=== PATIENT | female | born 1950 | race African-American/Black ===

== ENCOUNTER 2018-03-25 05:19 | Emergency (ER) | payer OTHER ==
--- NOTE | 2018-03-25 05:41 | PDOC ---
Attending Attestation - Resident Resident Name: Julio Smith - ED Attending Attestation I have performed the following: I have examined & evaluated the patient, The case was reviewed & discussed with the resident, I agree w/resident's findings & plan, Exceptions are as noted - HPI HPI: 03/25/18 06:43 67F with diffuse abd px and R flank px - Physicial Exam PE: 03/25/18 06:43 Agree with exam as reported by resident NAD, AOx3 No CVAT Abd soft, +periumbilical tenderness - Medical Decision Making 03/25/18 06:45 Focal abd tenderness f/u labs, imaging dispo per clnical course
[2018-03-25] MEDS ORDERED: SODIUM CHLORIDE 0.9% 1000 ML INFUS.BAG IV ONE (05:43)
[2018-03-25] MEDS ORDERED: FAMOTIDINE 20 MG/50 ML IVPB 20 MG/50 ML MG IVPB ONE ×2 (05:43→06:07)
--- NOTE | 2018-03-25 05:51 | PDOC ---
History of Present Illness - General Stated Complaint: ABD AND BACK PAIN Time Seen by Provider: 03/25/18 05:33 History Source: Patient Exam Limitations: No Limitations - History of Present Illness Initial Comments: 03/25/18 05:46 The patient is a 67F with a PMH of HTN and prediabetes, compliant with meds, who presents to the ER with 4 days of R flank pain and diffuse abdominal pain. The patient states that she initially thought the pain was gas and took maalox without relief. She describes a sharp flank pain and dull/pressure-like abdominal pain, nonradiating, not exacerbated or alleviated by any factors. She denies fever, chills, nausea, vomiting, CP, SOB, dysuria, hematuria, and hematochezia. LBM yesterday morning. She has never had any abdominal surgeries. She denies smoking, drinking, and recreational drugs. Past History - Past Medical History Allergies/Adverse Reactions: Allergies Allergy/AdvReac Type Severity Reaction Status Date / Time Shellfish Allergy Verified 10/25/13 22:07 SHRIMP Allergy Uncoded 10/25/13 22:07 Home Medications: Ambulatory Orders Metformin HCl [Glucophage] 500 mg PO HS 10/26/13 Losartan 50Mg/Hctz 12.5MG [Hyzaar -] 1 tab PO DAILY 03/25/18 Diabetes: Yes ("borderline"- on PO metformin) HTN: Yes Hypercholesterolemia: Yes - Suicide/Smoking/Psychosocial Hx Smoking Status: No Smoking History: Former smoker Number of Cigarettes Smoked Daily: 0 If you are a former smoker, when did you quit?: 18 years ago Hx Alcohol Use: No Drug/Substance Use Hx: No Substance Use Type: None Hx Substance Use Treatment: No Review of Systems - Review of Systems Able to Perform ROS?: Yes Comments:: 03/25/18 05:51 GENERAL/CONSTITUTIONAL: No fever or chills. No weakness. HEAD, EYES, EARS, NOSE AND THROAT: No change in vision. No ear pain or discharge. No sore throat. CARDIOVASCULAR: No chest pain, palpitations, or lightheadedness. RESPIRATORY: No cough, wheezing, shortness of breath, or hemoptysis. GASTROINTESTINAL: Positive for abdominal pain. No nausea, vomiting, diarrhea, or constipation. GENITOURINARY: Positive for flank pain. No dysuria, frequency, hematuria, or change in urination. MUSCULOSKELETAL: No joint or muscle swelling or pain. No neck or back pain. SKIN: No rash or lesions. NEUROLOGIC: No headache, numbness, tingling, focal weakness, loss of consciousness, or change in strength/sensation. ENDOCRINE: No increased thirst. No abnormal weight change. HEMATOLOGIC/LYMPHATIC: No anemia, easy bleeding, or history of blood clots. ALLERGIC/IMMUNOLOGIC: No hives or skin allergy. Is the patient limited Icelandic proficient: No *Physical Exam - Physical Exam Comments: 03/25/18 05:53 GENERAL: Well developed, well nourished. Awake and alert. In mild distress. HEENT: Normocephalic, atraumatic. Hearing grossly normal. Moist mucous membranes. PERRLA, EOMI. No conjunctival pallor. Sclera are non-icteric. NECK: Supple. Full ROM. No JVD. CARDIOVASCULAR: Regular rate and rhythm. No murmurs, rubs, or gallops. PULMONARY: No evidence of respiratory distress. Lungs clear to auscultation bilaterally. No wheezing, rales or rhonchi. ABDOMINAL: Soft. Tender to deep palpation over umbilicus and periumbilical abdomen. Non-distended. No rebound or guarding. GENITOURINARY: R CVA tenderness. MUSCULOSKELETAL: Normal range of motion at all joints. No bony deformities or tenderness. EXTREMITIES: No cyanosis. No clubbing. No edema. No calf tenderness or swelling. SKIN: Warm and dry. Normal capillary refill. No rashes. No jaundice. NEUROLOGICAL: Alert, awake, appropriate. Cranial nerves 2-12 grossly intact. Normal speech. Gait is normal without ataxia. PSYCHIATRIC: Cooperative. Good eye contact. Appropriate mood and affect. ED Treatment Course - LABORATORY CBC & Chemistry Diagram: 03/25/18 06:06 03/25/18 06:06 Medical Decision Making - Medical Decision Making 03/25/18 06:03 The patient is a 67F with a PMH of HTN and prediabetes who presents to the ER with R flank and abdominal pain concerning for AAA, pyelo, cystitis vs other UTI. Due to age, risk factors, and TTP, will order CTAP with IV contrast. Labs and imaging pending. Will give fluids and pepcid for pt comfort. 03/25/18 07:08 Pt signed out to Dr. Mejia for further care. Pending labs and CTAP. *DC/Admit/Observation/Transfer - Referrals Referrals: Amita Chu MD [Primary Care Provider] - - Patient Instructions - Post Discharge Activity
[2018-03-25 05:55] VITALS: BMI 27.3
[2018-03-25 06:17] LABS: BASO % 0.8 % (0-2.0); EOS % 7.7 % (0-4.5); HEMATOCRIT 36.5 % (32.4-45.2); HEMOGLOBIN 12.3 GM/dL (10.7-15.3); LYMPH % 33.7 % (8-40); MCHC 33.6 g/dl (32.0-36.0); MEAN CELL VOLUME 71.5 fl (80-96); MEAN PLT VOLUME 8.2 fl (7.5-11.1); MONO % 6.3 % (3.8-10.2); NEUT % 51.5 % (42.8-82.8); PLATELET COUNT 269 K/MM3 (134-434); RBC 5.11 M/mm3 (3.60-5.2); RDW 15.1 % (11.6-15.6); WHITE BLOOD COUNT 8.2 K/mm3 (4.0-10.0)
[2018-03-25 06:18] LABS: URINE APPEARANCE CLEAR; URINE BILIRUBIN NEGATIVE (<2.0 mg/dL); URINE COLOR YELLOW; URINE GLUCOSE (UA) NEGATIVE (NEGATIVE); URINE KETONE NEGATIVE (NEGATIVE); URINE LEUK ESTERASE TRACE (NEGATIVE); URINE NITRITE NEGATIVE (NEGATIVE); URINE PROTEIN NEGATIVE (NEGATIVE)
[2018-03-25 06:45] LABS: EPI CELLS RARE /HPF (FEW); URINE HYALINE CAST 1 /lpf; URINE MUCUS RARE
[2018-03-25 06:52] LABS: INR 0.99 (0.83-1.09); PROTHROMBIN TIME (PATIENT) 11.7 SEC (9.7-13.0)
[2018-03-25 07:45] LABS: ALBUMIN 3.1 g/dl (3.4-5.0); ALK PHOS 160 U/L (45-117); ANION GAP 7 MMOL/L (8-16); BILIRUBIN,TOTAL 0.4 mg/dL (0.2-1); BLOOD UREA NITROGEN 15 mg/dL (7-18); CHLORIDE 108 mmol/L (98-107); CO2 25 mmol/L (21-32); CREATININE 0.9 mg/dL (0.55-1.3); GLUCOSE,RANDOM 179 mg/dL (74-106); LIPASE 229 U/L (73-393); SGOT/AST 20 U/L (15-37); SGPT/ALT 25 U/L (13-61); SODIUM 139 mmol/L (136-145); TOT PROT 7.1 g/dl (6.4-8.2)
[2018-03-25 08:32] VITALS: BP 134/87; PULSE 86; TEMP 98.4
[2018-03-25] MEDS ORDERED: IBUPROFEN 600 MG TABLET (FP) PO ONE ×2 (09:51→09:52)
--- NOTE | 2018-03-25 09:54 | PDOC ---
*Physical Exam - Vital Signs Last Vital Signs Temp Pulse Resp BP Pulse Ox 98.4 F 86 16 134/87 99 03/25/18 08:31 03/25/18 08:31 03/25/18 08:31 03/25/18 08:31 03/25/18 08:31 ED Treatment Course - LABORATORY CBC & Chemistry Diagram: 03/25/18 06:06 03/25/18 07:00 - ADDITIONAL ORDERS Additional order review: Laboratory Results 03/25/18 03/25/18 03/25/18 07:00 07:00 06:06 PT with INR INR Sodium 139 Potassium 4.0 Chloride 108 H Carbon Dioxide 25 Anion Gap 7 L BUN 15 Creatinine 0.9 Creat Clearance w eGFR > 60 Random Glucose 179 H Calcium 8.0 L Total Bilirubin 0.4 AST 20 ALT 25 Alkaline Phosphatase 160 H Total Protein 7.1 Albumin 3.1 L Lipase 229 Urine Color Yellow Urine Appearance Clear Urine pH 6.0 Ur Specific [place] 1.019 Urine Protein Negative Urine Glucose (UA) Negative Urine Ketones Negative Urine Blood Negative Urine Nitrite Negative Urine Bilirubin Negative Urine Urobilinogen 2.0 H Ur Leukocyte Esterase Trace Urine WBC (Auto) 1 Urine RBC (Auto) <1 Ur Epithelial Cells Rare Hyaline Casts 1 Urine Mucus Rare Blood Type B POSITIVE Antibody Screen Negative 03/25/18 03/25/18 03/25/18 06:06 06:06 06:06 PT with INR 11.70 INR 0.99 Sodium Cancelled Potassium Cancelled Chloride Cancelled Carbon Dioxide Cancelled Anion Gap Cancelled BUN Cancelled Creatinine Cancelled Creat Clearance w eGFR Cancelled Random Glucose Cancelled Calcium Cancelled Total Bilirubin Cancelled AST Cancelled ALT Cancelled Alkaline Phosphatase Cancelled Total Protein Cancelled Albumin Cancelled Lipase Cancelled Urine Color Urine Appearance Urine pH Ur Specific [place] Urine Protein Urine Glucose (UA) Urine Ketones Urine Blood Urine Nitrite Urine Bilirubin Urine Urobilinogen Ur Leukocyte Esterase Urine WBC (Auto) Urine RBC (Auto) Ur Epithelial Cells Hyaline Casts Urine Mucus Blood Type Cancelled Antibody Screen Cancelled 03/25/18 06:06 RBC 5.11 MCV 71.5 L MCHC 33.6 RDW 15.1 MPV 8.2 Neutrophils % 51.5 D Lymphocytes % 33.7 D Monocytes % 6.3 Eosinophils % 7.7 H D Basophils % 0.8 D - Medications Given in the ED: ED Medications Discontinued Medications Generic Name Dose Route Start Last Admin Trade Name Hortencia PRN Reason Stop Dose Admin Famotidine/Sodium Chloride 20 mg in 50 mls @ 100 mls/hr 03/25/18 05:43 06:13 Pepcid 20 Mg Premixed Ivpb - IVPB 03/25/18 06:12 100 mls/hr ONCE ONE Administration Sodium Chloride 1,000 ml 03/25/18 05:43 03/25/18 06:13 Normal Saline - IV 03/25/18 05:44 1,000 ml ONCE ONE Administration Medical Decision Making - Medical Decision Making 03/25/18 09:55 1. No evidence of urinary tract calculi or obstructive uropathy. 2. Cholelithiasis. 3. Right inguinal hernia. 4. Fibroid uterus. 5. No acute pathology within the pelvis. *DC/Admit/Observation/Transfer Diagnosis at time of Disposition: Flank pain, acute - Discharge Dispostion Disposition: HOME Condition at time of disposition: Improved Decision to Admit order: No - Referrals Referrals: Amita Chu MD [Primary Care Provider] - Sammy Simental MD [Staff Physician] - - Patient Instructions Printed Discharge Instructions: DI for Flank Pain Additional Instructions: Come back to the emergency department for any new, worsening or concerning symptom. Follow up with your primary care provider and your surgery referral. - Post Discharge Activity
--- NOTE | 2018-03-25 10:27 | EKG ---
Test Reason : Blood Pressure : / mmHG Vent. Rate : 083 BPM Atrial Rate : 083 BPM P-R Int : 166 ms QRS Dur : 080 ms QT Int : 386 ms P-R-T Axes : 077 057 049 degrees QTc Int : 453 ms NORMAL SINUS RHYTHM NORMAL ECG WHEN COMPARED WITH ECG OF 25-OCT-2013 22:26, NO SIGNIFICANT CHANGE WAS FOUND Confirmed by SARAH RODRIGUEZ MD ([id number]) on 03/25/2018 10:27:12 AM Referred By: Confirmed By:SARAH RODRIGUEZ MD
== END 2018-03-25 10:05 | disposition home or self-care (01) ==
LOC: JER 05:19
PROC: 3E033GC Introduction of Other Therapeutic Substance into Peripheral Vein, Percutaneous Approach (ICD-10-PCS; principal; 2018-03-25)
DX: M54.9 Dorsalgia, unspecified (principal); R10.31 Right lower quadrant pain; I10 Essential (primary) hypertension; E11.9 Type 2 diabetes mellitus without complications; Z79.84 Long term (current) use of oral hypoglycemic drugs
CPT/HCPCS: 36415; 74177-TC; 80053; 81003; 81015; 83690; 85025; 85610; 86850; 86900; 86901; 87086; 93005; 93010; 99283-25; J7030

== ENCOUNTER 2018-05-07 05:04 | Day surgery (SDC) | payer OTHER ==
[2018-05-05 16:50] VITALS: BMI 29.4
[~2018-05-07 05:04] MED LIST: BUPIVACAINE HCL/PF 0.5% (5MG/ML) 10 ML VIAL IJ ONE
[2018-05-07] MEDS ORDERED: BUPIVACAINE HCL/PF 0.5% (5MG/ML) 10 ML VIAL ONE (08:17)
[2018-05-07] MEDS ORDERED: DESFLURANE GAS 240 ML BOTTLE IH ONE (08:20)
[2018-05-07] MEDS ORDERED: MIDAZOLAM HCL 2 MG/2 ML SINGLE DOSE VIAL ONE (08:22)
[2018-05-07] MEDS ORDERED: PROPOFOL 20 ML ONE (08:23)
[2018-05-07] MEDS ORDERED: LIDOCAINE HCL/PF 2% SDV 5ML VIAL ONE (08:24)
[2018-05-07] MEDS ORDERED: PROMETHAZINE HCL 25 MG/1 ML VIAL IVPB PRN (08:31)
[2018-05-07] MEDS ORDERED: oxyCODONE HCL 5 MG TABLET PO PRN (08:31)
[2018-05-07] MEDS ORDERED: ONDANSETRON 4 MG/2 ML VIAL IVPUSH PRN (08:31)
[2018-05-07] MEDS ORDERED: LACTATED RINGERS SOLUTION 1,000 ML IV SCH (08:45)
--- NOTE | 2018-05-07 09:25 | HP ---
History & Physical Update - History History: No Change - Physical Physical: No Change - Assessment Assessment: No Change - Plan Plan: No Change (Patient with upper abdominal pain , found to have multiple gallstones in gallbladder. She is scheduled to have laparoscopic cholecystectoomy , possible open. The procedure has been explained with risks , benefits and complications, including, bleeding, postoperative infection , bile leak, ductal injury . Consent obtained.)
[2018-05-07] MEDS ORDERED: ceFAZolin SODIUM 1 GM VIAL IVPB ONE (09:55)
[2018-05-07] MEDS ORDERED: ceFAZolin SODIUM 1 GM VIAL ONE (09:57)
[2018-05-07] MEDS ORDERED: DEXAMETHASONE SOD PHOSPHATE 4 MG/1 ML VIAL ONE (09:59)
[2018-05-07] MEDS ORDERED: ePHEDrine SULFATE 50 MG/1 ML AMPULE ONE (10:14)
[2018-05-07] MEDS ORDERED: NEOSTIGMINE METHYLSULFATE 0.5 MG/ML - 10 ML MDV ONE (10:30)
[2018-05-07] MEDS ORDERED: GLYCOPYRROLATE 0.2 MG/1 ML VIAL ONE (10:30)
[2018-05-07] MEDS ORDERED: BUPIVACAINE HCL/PF 0.5% (5MG/ML) 10 ML VIAL IJ ONE (10:35)
--- NOTE | 2018-05-07 10:40 | OP ---
Operative Note - Note: Operative Date: 05/07/18 Pre-Operative Diagnosis: Cholelithiasis, chronic cholecystitis, upper abdominal pain. Operation: Laparoscopic cholecystectomy. Findings: Distended gallbladder. Post-Operative Diagnosis: Same as Pre-op Surgeon: Shahid Siddiqui Aircraft Structural Design Engineer: Hayde Washington Anesthesiologist/IRB COMPLIANCE COORDINATOR: Paul Ram Anesthesia: General Specimens Removed: Gallbladder Estimated Blood Loss (mls): 5 Operative Report Dictated: Yes
[2018-05-07] MEDS ORDERED: ACETAMINOPHEN 1000 MG/100 ML VIAL (NON FORMULARY) IVPB ONE (11:01)
[2018-05-07] MEDS ORDERED: ACETAMINOPHEN INJECTION 100 ML IVPB ONE (11:10)
--- NOTE | 2018-05-07 12:01 | OP ---
DATE OF OPERATION: 05/07/2018 PREOPERATIVE DIAGNOSIS: Chronic right upper quadrant abdominal pain and calculus of the gallbladder with chronic cholecystitis. POSTOPERATIVE DIAGNOSIS: Chronic right upper quadrant abdominal pain and calculus of the gallbladder with chronic cholecystitis. OPERATIVE PROCEDURE: Laparoscopic cholecystectomy. SURGEON: Love Siddiqui MD RETAIL PARTS PROFESSIONAL: JOELLEN Almonte ANESTHESIA: General anesthesia. ANESTHESIOLOGIST: Paul Ram MD OPERATIVE DESCRIPTION: This 67-year-old woman with chronic right upper quadrant abdominal pain who found to have multiple calculi in the gallbladder on ultrasound. She was brought in for laparoscopic cholecystectomy. Consent was obtained. Risks, benefits, and complications have been having discussed with the patient. The patient was given general anesthesia. She was given a gram of Ancef. The abdomen was painted and draped. Time-out was called. An incision was made in the infraumbilical portion of the umbilicus, which was deepened through the skin and subcutaneous tissue and the linea alba. The peritoneum was incised, and a 10- to 12-mm laparoscopic trocar of the Monty type was introduced through the abdominal cavity. A 5-mm camera was introduced into the abdominal cavity. The abdomen was insufflated with carbon dioxide at 6 L/min with maximum intra-abdominal pressure of 15 mmHg. A 5-mm camera was introduced through the abdominal cavity. Under direct vision, two 5-mm trocars were inserted in the right upper quadrant of the abdomen, 1 along the right anterior axillary line, another along the mid clavicular line. These were noted entering the abdominal cavity under direct vision of the camera. A 3rd 5-mm trocar was inserted in the midline in the subxiphoid area. This was noted in the abdominal cavity to the right of the falciform ligament. The gallbladder was then visualized and grasped at the fundus with the grasper passed through the lateral 5-mm port. The gallbladder was then visualized and grasped at the fundus with the grasper passed through the lateral 5-mm port. The gallbladder was retracted cephalad and laterally thus exposing the infundibulum of the gallbladder. With another grasper through the medial 5-mm port, the infundibulum was grasped, and this was retracted inferiorly and laterally thus exposing the exposing Calot triangle. The Endo scissors in the subxiphoid port. The peritoneal reflection around the cystic duct was incised and the cystic duct isolated circumferentially. This was then divided between clips. The cystic artery was brought into view. It was likewise divided between clips. The peritoneal reflection on either side of the gallbladder was then cauterized and incised about 3 mm along the liver edge. The gallbladder was dissected off the gallbladder bed all the way to the fundus of the gallbladder. The cholecystectomy was, thus, accomplished. Hemostasis was achieved throughout the procedure as the procedure progressed. An EndoCatch was then introduced through the umbilical port the camera being switched to the subxiphoid port. The gallbladder was placed in the EndoCatch and retrieved out of the pelvic cavity. The specimen was sent to Pathology. The gallbladder fossa was completely clean. It was irrigated with 60 mL of normal saline. All fluid return was clear. There was no bleeding. The abdomen was then deflated, and the instruments were withdrawn. The linea alba in the midline at the umbilical port was approximated with interrupted and [id number] 2-0 Vicryl sutures. Then 0.5% Marcaine was injected into the wound. The skin was approximated with buried interrupted 4-0 Biosyn sutures. Dermabond was applied across the skin edges. The patient tolerated the procedure well, was extubated and sent to the recovery room in satisfactory and stable condition. Bella GARCIA/[id number] cc: Dr. Chu
--- NOTE | 2018-05-07 14:33 | SURG ---
Surgery Animal Husbandry Professor Note Animal Husbandry Professor: Hayde Washington PA-C Date of Service: 05/07/18 Diagnosis: Cholelithiasis, chronic cholecystitis, upper abdominal pain. Procedure: Laparoscopic cholecystectomy. I was present for the entirety of the operative procedure. For further detail, please refer to operative report. Visit type - Case Type Case Type: Scheduled - Emergency Emergency Visit: No - New patient This patient is new to me today: Yes Date on this admission: 05/07/18
[2018-05-07 15:26] VITALS: PULSE 89
[2018-05-07 15:56] VITALS: BP 134/77; TEMP 98.1
--- NOTE | 2018-05-10 15:41 | PATH ---
Surgical Pathology Report Patient Name: EMRE DOHERTY [facility]. Rec. #: [id number] /Age/Gender: 1950 (Age: 67) / F Account: [id number] Location: U SURGICAL Taken: 05/07/2018 Received: 05/07/2018 Reported: 05/10/2018 Physicians: Love Siddiqui M.D. Specimen(s) Received GALLBLADDER Clinical History Cholelithiasis, cholecystitis Final Diagnosis GALLBLADDER, LAPAROSCOPIC CHOLECYSTECTOMY: CHRONIC CHOLECYSTITIS, CHOLELITHIASIS, AND CHOLESTEROLOSIS. ONE LYMPH NODE WITH NON-NECROTIZING GRANULOMAS (0/1). SPECIAL STAINS FOR ACID FAST BACILLI (AFB) AND PAS FUNGUS ARE NEGATIVE. SEE COMMENT. Comment: The periductal lymph node shows non-necrotizing granulomatous inflammation. Findings are non-specific with a broad differential diagnosis; which includes infection and sarcoidosis. Suggest clinical correlation. Electronically Signed Jayde Rahman M.D. Gross Description Received in formalin, labeled "gallbladder," is a 7.5 x 2.7 x 2.5 cm. gallbladder with a 0.2 cm. in length portion of cystic duct attached. There is a 0.4 cm greatest dimension periductal lymph node present. The outer surface is cortez green and varies from smooth to shaggy. The lumen contains brown, tenacious bile as well as abundant yellow, irregular to fragmented choleliths ranging from 0.1-0.6 cm in greatest dimension. The mucosa is brown green and velvety. The wall of the gallbladder measures 0.1 cm. in thickness. Computer Discovery Teacher sections are submitted in one cassette. /05/07/2018 [facility]05/07/2018
== END 2018-05-07 16:17 | disposition home or self-care (01) ==
LOC: JASU-SURG 05:04
PROVIDERS: ATTEND Specialist
PROC: 0FT44ZZ Resection of Gallbladder, Percutaneous Endoscopic Approach (ICD-10-PCS; principal; 2018-05-07 09:30)
DX: K80.10 Calculus of gallbladder with chronic cholecystitis without obstruction (principal)
CPT/HCPCS: 82962; 88304-TC; 88312-TC; 94760; J0131

== ENCOUNTER 2019-04-21 17:56 | Emergency (ER) | payer OTHER ==
[2019-04-21 18:02] VITALS: BP 149/71; PULSE 90; TEMP 98; BMI 28.6
[2019-04-21] MEDS ORDERED: KETOROLAC TROMETHAMINE 30 MG/1 ML VIAL IM ONE (19:14)
--- NOTE | 2019-04-21 19:15 | PDOC ---
History of Present Illness - General Chief Complaint: Pain Stated Complaint: SHOLDER PAIN Time Seen by Provider: 04/21/19 19:02 - History of Present Illness Initial Comments: 04/21/19 19:10 CHIEF COMPLAINT: shoulder pain HISTORY OF PRESENT ILLNESS: 68-year-old female with history of hypertension and hyperlipidemia presents to [facility] with left shoulder pain. Patient reports the pain has been ongoing for 3-1/2 months. Patient was followed by PCP Dr. Chu and orthopedist Dr. Mojica at [facility]. Patient states she as received cortisone shots as well as physical therapy and acupuncture without significant relief. Patient reports the pain has been exacerbated over the last 48 hours and she can no longer move her left shoulder. Patient reports that she had an MRI revealing a torn rotator cuff. No recent travel or sick contacts. PAST MEDICAL HISTORY: HTN, HLD FAMILY HISTORY: Denies SOCIAL HISTORY: Denies tobacco, alcohol, illicit drug use. SURGICAL HISTORY: Denies ALLERGIES: No known drug allergies REVIEW OF SYSTEMS General/Constitutional: Denies fever or chills. Denies weakness, weight change. HEENT: Denies change in vision. Denies ear pain or discharge. Denies sore throat. Cardiovascular: Denies chest pain or shortness of breath. Respiratory: Denies cough, wheezing, or hemoptysis. Gastrointestinal: Denies nausea, vomiting, diarrhea or constipation. Denies rectal bleeding. Genitourinary: Denies dysuria, frequency, or change in urination. Musculoskeletal: L shoulder pain. Denies neck or back pain. Skin and breasts: Denies rash or easy bruising. Neurologic: Denies headache, vertigo, loss of consciousness, or loss of sensation. Psychiatric: Denies depression or anxiety. PHYSICAL EXAM General Appearance: Well-appearing, appropriately dressed. No apparent distress. HEENT: EOMI, PERRLA, normal ENT inspection, normal voice, TMs normal, pharynx normal. No conjunctival pallor. No photophobia, scleral icterus. Neck: Supple. Trachea midline. No tenderness, rigidity, carotid bruit, stridor , lymphadenopathy, or thyromegaly. Respiratory/Chest: Lungs CTAB. No shortness of breath, chest tenderness, respiratory distress, accessory muscle use. No crackles, rales, rhonchi, stridor , wheezing, dullness Cardiovascular: RRR. S1, S2. No JVD, murmur, bradycardia, tachycardia. Gastrointestinal/Abdominal: Normal bowel sounds. Abdomen soft, non-distended. No tenderness or rebound tenderness. No organomegaly, pulsatile mass, guarding , hernia, hepatomegaly, splenomegaly. Musculoskeletal/Extremities: +Neer/Hawkin's test. Tenderness to anterior L shoulder. Normal inspection. FROM of all extremities, normal capillary refill. Pelvis Stable. No CVA tenderness. No tenderness to extremities, pedal edema, swelling, erythema or deformity. Integumentary: Appropriate color, dry, warm. No cyanosis, erythema, jaundice or rash Neurologic: reporting specialist II-XII intact. Fully oriented, alert. Appropriate mood/affect. Motor strength 5/5. No appreciable EOM palsy, facial droop or sensory deficit. Past History - Past Medical History Allergies/Adverse Reactions: Allergies Allergy/AdvReac Type Severity Reaction Status Date / Time No Known Drug Allergies Allergy Verified 04/21/19 18:03 Shellfish Allergy Verified 04/21/19 18:03 SHRIMP Allergy Uncoded 04/21/19 18:03 Home Medications: Ambulatory Orders Metformin HCl [Glucophage] 500 mg PO HS 10/26/13 Amlodipine Besylate/Benazepril [Lotrel 10-20 mg Capsule] 1 cap PO HS 05/05/18 Ibuprofen [Motrin -] 400 mg PO TID #21 tablet 05/07/18 Ibuprofen [Motrin -] 600 mg PO PRN PRN 05/07/18 Oxycodone HCl/Acetaminophen [Percocet 5-325 mg Tablet] 1 tab PO Q6H #20 tablet MDD 4 05/07/18 Diclofenac Sodium [Voltaren -] 75 mg PO BID #14 tablet. 04/21/19 Anemia: Yes (YRS AGO) Asthma: No Cancer: No Cardiac Disorders: No CVA: No COPD: No CHF: No Dementia: No Diabetes: Yes GI Disorders: No Disorders: No HTN: Yes Hypercholesterolemia: Yes Liver Disease: No Seizures: No Thyroid Disease: No - Surgical History Abdominal Surgery: Yes (LIPOSUCTION) Appendectomy: No Cardiac Surgery: No Cholecystectomy: No Lung Surgery: No Neurologic Surgery: No Orthopedic Surgery: No - Immunization History Immunization Up to Date: Yes - Psycho Social/Smoking Cessation Hx Smoking Status: No Smoking History: Never smoked Have you smoked in the past 12 months: No Number of Cigarettes Smoked Daily: 0 If you are a former smoker, when did you quit?: 18 years ago Hx Alcohol Use: No Drug/Substance Use Hx: No Substance Use Type: None Hx Substance Use Treatment: No *Physical Exam - Vital Signs Last Vital Signs Temp Pulse Resp BP Pulse Ox 98 F 90 18 149/71 98 04/21/19 17:58 04/21/19 17:58 04/21/19 17:58 04/21/19 17:58 04/21/19 17:58 Medical Decision Making - Medical Decision Making 04/21/19 19:14 68-year-old female with history of hypertension and hyperlipidemia [facility] with [facility] pain. -toradol IM Advised patient to take medication as prescribed and follow up with orthopedics within the next week. Advised patient of signs and symptoms for return to ED. Patient verbalized understanding and agrees to plan. Discharge - Discharge Information Problems reviewed: Yes Clinical Impression/Diagnosis: Rotator cuff injury Qualifiers: Encounter type: subsequent encounter Laterality: left Qualified Code(s): S46.002D - Unspecified injury of muscle(s) and tendon(s) of the rotator cuff of left shoulder, subsequent encounter Condition: Stable Disposition: HOME - Admission No - Additional Discharge Information Prescriptions: Diclofenac Sodium [Voltaren -] 75 mg PO BID #14 tablet.dr - Follow up/Referral Referrals: Amita Chu MD [Primary Care Provider] - - Patient Discharge Instructions Patient Printed Discharge Instructions: DI for Rotator Cuff Injury Additional Instructions: Please take medication as prescribed. Follow up with an orthopedics for continued management of your rotator cuff injury. If you experience any loss of sensation to your extremities, any swelling or increased pain, please return to the ER. - Post Discharge Activity Work/Back to School Note: Back to Work
[2019-04-21] MEDS ORDERED: KETOROLAC TROMETHAMINE 30 MG/1 ML VIAL ONE (19:17)
== END 2019-04-21 19:21 | disposition home or self-care (01) ==
LOC: JERFT 17:56
DX: S46.002A Unspecified injury of muscle(s) and tendon(s) of the rotator cuff of left shoulder, initial encounter (principal); I10 Essential (primary) hypertension; E11.9 Type 2 diabetes mellitus without complications; Z79.84 Long term (current) use of oral hypoglycemic drugs; E78.00 Pure hypercholesterolemia, unspecified; X58.XXXA Exposure to other specified factors, initial encounter; Y93.89 Activity, other specified; Y92.89 Other specified places as the place of occurrence of the external cause; Y99.8 Other external cause status
CPT/HCPCS: 99282-25

== ENCOUNTER 2020-09-07 06:38 | Emergency (ER) | payer OTHER ==
[2020-09-07 07:02] VITALS: TEMP 98.8; BMI 27.3
[2020-09-07] MEDS ORDERED: LACTATED RINGERS SOLUTION 1000 ML INFUS.BAG IV ONE (07:14)
[2020-09-07 07:58] LABS: BASO % 0.4 % (0-2.0); HEMATOCRIT 34.9 % (32.4-45.2); LYMPH % 26.8 % (8-40); MCH 24.8 pg (25.7-33.7); MCHC 34.3 g/dl (32.0-36.0); MEAN CELL VOLUME 72.3 fl (80-96); MEAN PLT VOLUME 7.8 fl (7.5-11.1); MONO % 8.1 % (3.8-10.2); NEUT % 59.7 % (42.8-82.8); PLATELET COUNT 244 K/MM3 (134-434); RBC 4.83 M/mm3 (3.60-5.2)
[2020-09-07 08:18] LABS: CALCIUM 8.4 mg/dL (8.5-10.1)
[2020-09-07 08:19] LABS: ALBUMIN 3.2 g/dl (3.4-5.0); MAGNESIUM 1.7 mg/dL (1.8-2.4)
[2020-09-07 08:23] LABS: BILIRUBIN,TOTAL 0.6 mg/dL (0.2-1); TOT PROT 8.1 g/dl (6.4-8.2)
[2020-09-07] MEDS ORDERED: MAGNESIUM SULF 50% (8.12 MEQ/2 ML-1 GM VIAL) IVPB ONE (08:23)
[2020-09-07] MEDS ORDERED: MAGNESIUM 1GM/D5W - 1 GM/100 ML IVPB IVPB ONE (08:42)
[2020-09-07 11:05] LABS: CALCIUM 8.8 mg/dL (8.5-10.1)
[2020-09-07 11:06] LABS: BLOOD UREA NITROGEN 13.1 mg/dL (7-18)
[2020-09-07 11:09] LABS: CREATININE 0.8 mg/dL (0.55-1.3)
[2020-09-07 11:53] VITALS: BP 122/71; PULSE 92
== END 2020-09-07 12:00 | disposition home or self-care (01) ==
LOC: JER 06:38
PROC: 3E033GC Introduction of Other Therapeutic Substance into Peripheral Vein, Percutaneous Approach (ICD-10-PCS; principal; 2020-09-07)
DX: A09 Infectious gastroenteritis and colitis, unspecified (principal); Z11.52 Encounter for screening for COVID-19
CPT/HCPCS: 36415; 80048; 80053; 83735; 85025; 93005; 93010; 99284-25; C9803; U0003; U0005

== ENCOUNTER 2022-03-02 10:53 | Emergency (ER) | payer OTHER ==
[2022-03-02 11:02] VITALS: BP 129/75; PULSE 85; RESP 18; TEMP 97.7; BMI 28.3
[2022-03-02] MEDS ORDERED: CYCLOBENZAPRINE HCL 10 MG TABLET (FP) PO ONE (12:16)
[2022-03-02] MEDS ORDERED: LIDOCAINE 5% TOPICAL PATCH TP ONE (12:16)
[2022-03-02] MEDS ORDERED: IBUPROFEN 400 MG TABLET (FP) PO ONE (12:16)
[2022-03-02] MEDS ORDERED: CYCLOBENZAPRINE HCL 10 MG TABLET (FP) ONE (12:22)
[2022-03-02] MEDS ORDERED: LIDOCAINE 5% TOPICAL PATCH ONE (12:22)
[2022-03-02] MEDS ORDERED: LIDOCAINE PATCH REMOVAL MC ONE (22:00)
== END 2022-03-02 14:32 | disposition home or self-care (01) ==
LOC: JERFT 10:53 → JER 10:53 → JERFT 14:32
DX: S29.012A Strain of muscle and tendon of back wall of thorax, initial encounter (principal)
CPT/HCPCS: 71045-TC-FY; 71101-TC-RT-FY; 93005; 93010; 99284-25

== ENCOUNTER 2024-02-07 12:14 | Emergency (ER) | payer OTHER ==
[2024-02-07 12:27] VITALS: RESP 16; BMI 25.0
[2024-02-07] MEDS ORDERED: ACETAMINOPHEN INJECTION 100 ML ONE (14:29)
[2024-02-07] MEDS: ACETAMINOPHEN 1000 MG/100 ML BAG IVPB ONE (14:40)
[2024-02-07 14:42] LABS: BASO % 0.7 % (0-2.0); HEMATOCRIT 35.6 % (32.4-45.2); HEMOGLOBIN 11.7 GM/dL (10.7-15.3); LYMPH % 37.1 % (8-40); MCH 24.8 pg (25.7-33.7); MCHC 32.9 g/dl (32.0-36.0); MEAN CELL VOLUME 75.3 fl (80-96); MONO % 9.4 % (3.8-10.2); NEUT % 46.8 % (42.8-82.8); PLATELET COUNT 245 10^3/uL (134-434); RBC 4.74 M/mm3 (3.60-5.2); RDW 14.6 % (11.6-15.6); WHITE BLOOD COUNT 6.6 K/mm3 (4.0-10.0)
[2024-02-07 14:49] LABS: INR 1.06 (0.83-1.09)
[2024-02-07 14:52] LABS: ACTIVATED PTT 31.2 SECONDS (25.2-36.5)
[2024-02-07 15:02] LABS: POTASSIUM 3.9 mmol/L (3.5-5.1)
[2024-02-07 15:05] LABS: ALBUMIN 3.2 g/dl (3.4-5.0); BLOOD UREA NITROGEN 15.2 mg/dL (7-18); CALCIUM 9.2 mg/dL (8.5-10.1); MAGNESIUM 1.7 mg/dL (1.8-2.4)
[2024-02-07 15:08] LABS: CREATININE 0.9 mg/dL (0.55-1.3)
[2024-02-07 15:10] LABS: BILIRUBIN,TOTAL 0.5 mg/dL (0.2-1); TOT PROT 7.2 g/dl (6.4-8.2)
[2024-02-07 17:02] VITALS: BP 140/85; PULSE 78; TEMP 98.3
== END 2024-02-07 18:00 | disposition left against medical advice (07) ==
LOC: JER 12:14
PROC: 3E033NZ Introduction of Analgesics, Hypnotics, Sedatives into Peripheral Vein, Percutaneous Approach (ICD-10-PCS; principal; 2024-02-07)
DX: R05.9 Cough, unspecified (principal); R42 Dizziness and giddiness; M54.9 Dorsalgia, unspecified; R07.9 Chest pain, unspecified; X50.0XXA Overexertion from strenuous movement or load, initial encounter; Y92.000 Kitchen of unspecified non-institutional (private) residence as the place of occurrence of the external cause; Z20.822 Contact with and (suspected) exposure to COVID-19
CPT/HCPCS: 0241U-QW; 36415; 71045-TC-FY; 80053; 82550; 83735; 84484; 85025; 85610; 85730; 86850; 86900; 86901; 93005; 93010; 99285-25; J0131

== ENCOUNTER → 2024-10-17 | Day surgery (SDC) | payer OTHER | END | disposition home or self-care (01) | LOC: JRADIR 10:06 | PROVIDERS: ATTEND Internal Medicine | PROC: 0G9G3ZX Drainage of Left Thyroid Gland Lobe, Percutaneous Approach, Diagnostic (ICD-10-PCS; principal; 2024-10-17) | DX: E04.1 Nontoxic single thyroid nodule (principal) | CPT/HCPCS: 10005; 76942; 88173; 88305-TC ==

== ENCOUNTER 2024-11-24 15:57 | Emergency (ER) | payer OTHER ==
[2024-11-24 16:04] VITALS: BP 136/66; PULSE 80; RESP 20; TEMP 98.3; BMI 24.1
[2024-11-24] MEDS ORDERED: IBUPROFEN 600 MG TABLET (FP) PO ONE (17:29)
[2024-11-24] MEDS: IBUPROFEN 600 MG TABLET (FP) PO ONE (17:31)
== END 2024-11-24 19:00 | disposition home or self-care (01) ==
LOC: JERFT 15:57
DX: M25.511 Pain in right shoulder (principal)
CPT/HCPCS: 73030-TC-RT-FY; 73200-TC-RT; 99283-25